=== PATIENT | female | born 1975 ===

== ENCOUNTER 2022-12-04 17:37 | Emergency (ER) | payer OTHER ==
[~2022-12-04] VITALS: Ht 167.6 cm; Wt 78.6 kg
[2022-12-04 17:58] VITALS: BP 138/80
== END 2022-12-04 20:13 | disposition left against medical advice (07) ==
LOC: EMS 17:38
DX: M54.50 Low back pain, unspecified (principal); Z53.21 Procedure and treatment not carried out due to patient leaving prior to being seen by health care provider
CPT/HCPCS: 99281; Z7502